=== PATIENT | female | born 1945 | race Caucasian/White ===

== ENCOUNTER 2017-01-31 11:36 | Emergency (ER) | payer MEDICARE ==
[~2017-01-31] VITALS: Ht 162.6 cm; Wt 74.2 kg
[~2017-01-31 11:36] MED LIST: ALEGRA PO; FOLI1 PO; MULTCAP3; WARF5TAB PO; [UNRECOGNIZED DRUG - OTHER] PO
[2017-01-31 11:41] VITALS: BP 149/71; PULSE 101; RESP 18; TEMP 98.3; O2SAT 94
[2017-01-31] MEDS ORDERED: FOLI400T PO (11:57)
[2017-01-31] MEDS ORDERED: WARF-23 PO (11:57)
[2017-01-31] MEDS ORDERED: MULT-65 PO (11:57)
[2017-01-31] MEDS ORDERED: LIDOCAINE HCL 1% 50 ML VIAL INFIL ONE (12:45)
--- NOTE | 2017-01-31 13:04 | PD ---
HPI Chief Complaint: Laceration/Skin Injury Time Seen by Provider: 12:25 Travel History International Travel<30 days: No Contact w/Intl Traveler<30days: No Traveled to known affect area: No History of Present Illness HPI 71-year-old female here with laceration to the right fifth digit caused by a foreign food specialty cook prior to arrival. Patient reports minimal pain at the site. No paresthesia or weakness of the digit. She has full range of motion. Tetanus immunization is not up-to-date. Symptom severity . No aggravating or alleviating factors. PFSH Past Medical History Hx Anticoagulant Therapy: Yes Depression: Yes Cardiovascular Problems: No High Cholesterol: Yes Cerebrovascular Accident: Yes Diminished Hearing: No Endocrine: No Gastrointestinal Disorders: No Genitourinary: No Musculoskeletal: No Neurologic: No Psychiatric: No Reproductive: No Respiratory: No Tetanus Vaccination: > 5 Years Influenza Vaccination: Yes ?: Not Menopausal: Yes Social History Alcohol Use: No Tobacco Use: No (QUIT 6 YRS AGO) Substance Use: No Allergies-Medications (Allergen,Severity, Reaction): Coded Allergies: codeine (Unverified Allergy, Mild, NAUSEA/VOMITING, 01/31/17) Uncoded Allergies: CORN PEANUTS (Allergy, Mild, CONGESTION, 04/06/07) Reported Meds & Prescriptions Reported Meds & Active Scripts Active Reported Multi-Vitamin Daily (Multiple Vitamin) 1 Tab Tab 1 Tab PO DAILY Folic Acid 0.4 Mg Tab 1,000 Mcg PO DAILY Warfarin 5 Mg Tab 5 Mg PO DAILY [Calcium Calttrate] 600 Mg PO Review of Systems Except as stated in HPI: all other systems reviewed are Neg Physical Exam Narrative GENERAL: Alert well-appearing female no acute distress SKIN: Warm and dry. 1 cm laceration to the lateral aspect of the fifth digit. No tendon injury visualized. Patient has full range of motion of the finger. HEAD: Normocephalic. EYES: No scleral icterus. No injection or drainage. NECK: Supple, trachea midline. No JVD or lymphadenopathy. MUSCULOSKELETAL: No cyanosis, or edema. Data Data Last Documented VS Vital Signs Date Time Temp Pulse Resp B/P (MAP) Pulse Ox O2 Delivery O2 Flow Rate FiO2 01/31/17 11:41 98.3 101 18 149/71 (97) 94 Orders Orders Lidocaine 1% Inj (50 Ml) (Xylocaine 1% I (01/31/17 12:45) [facility] Medical Decision Making Medical Screen Exam Complete: Yes Emergency Medical Condition: Yes Differential Diagnosis Finger laceration, tendon laceration, abrasion Narrative Course 71 -year-old female here with laceration to the right fifth digit caused by foreign food specialty cook prior to arrival. Patient has a 1 cm laceration to the lateral aspect of the finger. No tendon injury visualized a suspected. Wound was sutured closed. Patient tolerated procedure well. Advised to follow up PCP Procedures Procedure Narrative LACERATION LOCATION: Right fifth digit LENGTH: 1 cm NUMBER OF STITCHES/ABBY: 3 REPAIR: The area of the laceration was prepped with Betadine and sterilely draped. The laceration was infiltrated with 1% lidocaine. The wound was copiously irrigated and explored without evidence of foreign body, tendon injury or neurovascular injury. The wound was closed using 3-0 Ethilon. This was a single layer repair. A sterile dressing was applied. The patient was advised to keep the dressing clean and dry. Patient tolerated the procedure well. Diagnosis Primary Impression: Finger laceration Qualified Codes: S61.216A - Laceration without foreign body of right little finger without damage to nail, initial encounter Referrals: Primary Care Physician Additional Instructions: Sutures need to be removed in 7-10 days. Keep the bandage in place for 24 hours. Do not submerge the wound in water. He may begin showering tomorrow. Watch the area daily with soap and water and apply clean dry dressing. Return if he had new or worsening symptoms Disposition: 01 DISCHARGE HOME Condition: Stable Radha Caputo Jan 31, 2017 13:04
[2017-01-31] MEDS ORDERED: TETANUS/DIPHTHERIA TOXOID ADULT 0.5 ML VIAL IM ONE (13:30)
== END 2017-01-31 13:32 | disposition home or self-care (01) ==
LOC: PHEFT 11:36
DX: S61.216A Laceration without foreign body of right little finger without damage to nail, initial encounter (principal); E78.00 Pure hypercholesterolemia, unspecified; Z23 Encounter for immunization; Z79.01 Long term (current) use of anticoagulants; Z86.79 Personal history of other diseases of the circulatory system; Z86.59 Personal history of other mental and behavioral disorders; W45.8XXA Other foreign body or object entering through skin, initial encounter
CPT/HCPCS: 12001; 90471; 90714